=== PATIENT | female | born 1995 | race Asian ===

== ENCOUNTER 2019-08-20 00:07 | Emergency (ER) | payer BC ==
--- NOTE | 2019-08-20 02:38 | ED ---
Lower Extremity - HPI Summary HPI Summary: 23 year old female presents to the ED with a chief complaint of right foot pain secondary to twisting while landing during martial arts practice hours prior to arrival. She describes a sharp pain of 4/10 severity. Patient has not taken any medications for pain, and refuses pain medications when offered. - History of Current Complaint Chief Complaint: EDExtremityLower Stated Complaint: R FOOT INJURY PER PT Time Seen by Provider: 08/20/19 02:28 Hx Obtained From: Patient Mechanism Of Injury: Fall From A Standing Position, Twisted Onset of Pain: Immediate Onset/Duration: Hours Severity Initially: Moderate Severity Currently: Moderate Pain Intensity: 4 Timing: Constant, Lasting Hours Location: Is Discrete @ - Right Ankle Character Of Pain: Sharp Associated Signs And Symptoms: Positive: Negative - Allergies/Home Medications Allergies/Adverse Reactions: Allergies Allergy/AdvReac Type Severity Reaction Status Date / Time No Known Allergies Allergy Verified 08/20/19 00:12 Home Medications: Home Medications NK [No Home Medications Reported] 08/20/19 [History Confirmed 08/20/19] PMH/Surg Hx/FS Hx/Imm Hx Previously Healthy: Yes Musculoskeletal History: Denies: Hx Arthritis Infectious Disease History: No Infectious Disease History: Denies: Traveled Outside the [place] in Last 30 Days - Family History Known Family History: Positive: None - Social History Alcohol Use: None Hx Substance Use: No Substance Use Type: Reports: None Hx Tobacco Use: No Review of Systems - ROS Summary Review of Systems Summary: Home Medications Medication Instructions Recorded Confirmed Type NK [No Home Medications Reported] 08/20/19 08/20/19 History Positive: Fever Positive: Arthralgia All Other Systems Reviewed And Are Negative: Yes Physical Exam - Summary Physical Exam Summary: General: Well-developed, Well-nourished female. No acute distress. HEENT: Normocephalic, Atraumatic. Neck: Soft, FROM, Cardiovascular: Normal sinus rhythm, (-) murmur. Lungs: Clear to auscultation bilaterally (-) wheezes, (-) rales, (-) rhonchi. Abdomen: Soft, non-tender, non-distended, (-) organomegaly, normal bowel sounds. Extremities: No edema. Tenderness of medial arch of right foot. Pulses intact. Normal capillary refill. Normal ROM. Skin: Warm, dry, (-) rash. Neuro: Alert and oriented x3, no focal deficits. Psychiatric: Mood normal, affect normal. Triage Information Reviewed: Yes Vital Signs On Initial Exam: Initial Vitals Temp Pulse Resp BP Pulse Ox 100.7 F 99 16 141/89 97 08/20/19 00:09 08/20/19 00:09 08/20/19 00:09 08/20/19 00:09 08/20/19 00:09 Vital Signs Reviewed: Yes Procedures - Sedation Patient Received Moderate/Deep Sedation with Procedure: No Diagnostics - Vital Signs Vital Signs Temp Pulse Resp BP Pulse Ox 08/20/19 00:09 100.7 F 99 16 141/89 97 - Laboratory Lab Statement: Any lab studies that have been ordered have been reviewed, and results considered in the medical decision making process. - Radiology Foot XR Radiology Interpretation Completed By: ED Physician Summary of Radiographic Findings: Foot XR shows no obvious fracture or dislocation. Dr. Villalba has reviewed and interpreted this report. Lower Extremity Course/Dx - Course Course Of Treatment: 23-year-old female with foot pain after landing during martial arts practice. Patient states she is unable to bear weight secondary to pain. No obvious fracture noted on x-ray. Patient given crutches and education. Advised her to elevate, ice, anti-inflammatories. Rest. Weightbearing as tolerated. Follow up with PCP. Follow up sooner for any worsening symptoms. - Diagnoses Provider Diagnoses: Foot sprain Discharge ED - Sign-Out/Discharge Documenting (check all that apply): Patient Departure - Discharge - Discharge Plan Condition: Stable Disposition: HOME Patient Education Materials: Crutch Instructions (ED) Referrals: [facility] - Juan KWON [Z.BUSINESS, APPLICATION, OTHER] - Additional Instructions: Follow up with [facility] in 2-3 days. Use your crutches as needed. Return to the ED if you experience new or worsened symptoms. - Billing Disposition and Condition Condition: STABLE Disposition: Home - Attestation Statements Document Initiated by Scribe: Yes Documenting Scribe: Win Cueva Provider For Whom Scribe is Documenting (Include Credential): Mireya Villalba MD Scribe Attestation: Wni Jason, scribed for Mireya Villalba MD on 08/20/19 at 0346. Scribe Documentation Reviewed: Yes Provider Attestation: The documentation as recorded by the scribe, Win Cueva accurately reflects the service I personally performed and the decisions made by me, Mireya Villalba MD Status of Scribe Document: Viewed
[2019-08-20 05:38] VITALS: BP 122/64
== END 2019-08-20 03:38 | disposition home or self-care (01) ==
LOC: ED 00:07
DX: S93.601A Unspecified sprain of right foot, initial encounter (principal); X50.9XXA Other and unspecified overexertion or strenuous movements or postures, initial encounter; Y93.75 Activity, martial arts; Y92.9 Unspecified place or not applicable
CPT/HCPCS: 99282